=== PATIENT | female | born 1985 ===

== ENCOUNTER 2020-01-08 18:38 | Emergency (ER) | payer OTHER ==
[2020-01-08 18:52] VITALS: BP 105/70
[2020-01-08] MEDS ORDERED: Acetaminophen TAB* 325 MG PO ONE (18:55)
[2020-01-08 19:16] LABS: Influenza A Molecular Negative (Negative); Influenza B Molecular Negative (Negative)
[2020-01-08] MEDS ORDERED: Amoxicillin PO (*) 500 MG CAP PO ONE (19:59)
--- NOTE | 2020-01-08 20:13 | UC ---
FLU HPI - HPI Summary HPI Summary: PATIENT WITH COUGH AND CHILLS FOR A WEEK. TODAY DEVELOPED BODYACHES, FEVER AND FATIGUE. DENIES SORE THROAT, NAUSEA/VOMITING. - History of Current Complaint Chief Complaint: UCRespiratory Stated Complaint: FEVER Time Seen by Provider: 01/08/20 19:10 Hx Obtained From: Patient Hx Last Menstrual Period: 12/17/2019 Onset/Duration: Gradual Onset, Lasting Days, Still Present Severity Currently: Moderate Severity Initially: Moderate Pain Intensity: 10 Pain Scale Used: 0-10 Numeric Associated Signs & Symptoms: Positive: Fever, Myalgia, Cough - Allergy/Home Medications Allergies/Adverse Reactions: Allergies Allergy/AdvReac Type Severity Reaction Status Date / Time No Known Allergies Allergy Verified 01/08/20 18:53 PMH/Surg Hx/FS Hx/Imm Hx Previously Healthy: Yes - Surgical History Surgical History: None - Family History Known Family History: Positive: Non-Contributory - Social History Alcohol Use: None Substance Use Type: None Smoking Status (MU): Never Smoked Tobacco - Immunization History Most Recent Influenza Vaccination: 2011 Most Recent Tetanus Shot: UNKNOWN Most Recent Pneumonia Vaccination: N/A Review of Systems All Other Systems Reviewed And Are Negative: Yes Constitutional: Positive: Fever, Chills, Fatigue ENT: Positive: Negative. Negative: Sore Throat Respiratory: Positive: Cough Cardiovascular: Positive: Negative Gastrointestinal: Positive: Negative Musculoskeletal: Positive: Myalgia Physical Exam Triage Information Reviewed: Yes Appearance: No Pain Distress, Well-Nourished, Ill-Appearing - FATIGUED Vital Signs: Initial Vital Signs Temp 101.9 F 01/08/20 18:49 Pulse 135 01/08/20 18:49 Resp 24 01/08/20 18:49 BP 105/70 01/08/20 18:49 Pulse Ox 100 01/08/20 18:49 Laboratory Tests 01/08/20 01/08/20 19:04 19:41 Influenza A (Rapid) Negative Influenza B (Rapid) Negative Group A Strep Rapid Positive H Vital Signs Reviewed: Yes Eyes: Positive: Conjunctiva Clear ENT: Positive: Hearing grossly normal, Pharyngeal erythema, Tonsillar swelling, Tonsillar exudate Neck: Positive: Supple, Tenderness @ - ANTERIOR CERVICAL LAD, Enlarged Nodes @ - ANTERIOR CERVICAL LAD Respiratory Exam: Normal Cardiovascular: Positive: Tachycardia Abdomen Description: Positive: Soft Musculoskeletal: Positive: No Edema Neurological: Positive: Alert Psychological: Positive: Normal Response To Family, Age Appropriate Behavior Skin: Negative: Rashes Flu Course/Dx - Course Course Of Treatment: FLU NEGATIVE. STREP POSITIVE. AMOXICILLIN TWICE DAILY FOR 10 DAYS. REST, HYDRATE, OTC MEDS NEEDED. NOTE FOR WORK PROVIDED. - Differential Dx/Diagnosis Provider Diagnosis: Strep tonsillitis Discharge ED - Sign-Out/Discharge Documenting (check all that apply): Patient Departure All imaging exams completed and their final reports reviewed: No Studies - Discharge Plan Condition: Stable Disposition: HOME Prescriptions: Amoxicillin PO (*) [Amoxicillin 500 MG CAP*] 500 mg PO Q12H #19 cap Patient Education Materials: Strep Throat (ED) Forms: *Gen. Provider Communication, *Work Release Referrals: Barbara Nguyen MD [Primary Care Provider] - If Needed Additional Instructions: STREP POSITIVE. TAKE ANTIBIOTICS FOR THE FULL 10 DAYS. OTC CHLORASEPTIC OR CEPACOL LOZENGES AND/OR IBUPROFEN FOR SORE THROAT NEEDED ONCE SYMPTOMS RESOLVED - NEW TOOTHBRUSH DO NOT SHARE FOOD, DRINK, UTENSILS FLU SWAB NEGATIVE - Billing Disposition and Condition Condition: STABLE Disposition: Home
== END 2020-01-08 20:20 | disposition home or self-care (01) ==
LOC: UCEAST 18:38
DX: J03.00 Acute streptococcal tonsillitis, unspecified (principal)
CPT/HCPCS: 87651; 99212; A9270-GY; G0463